=== PATIENT | male | born 1975 | race African-American/Black ===

== ENCOUNTER 2017-04-11 19:08 | Emergency (ER) | payer MEDICARE, OTHER ==
[~2017-04-11] VITALS: Ht 188 cm; Wt 115.0 kg
[~2017-04-11 19:08] MED LIST: BENZ1TAB PO; HALO100P IM; HALO10TA PO
[2017-04-11 19:09] VITALS: BP 133/92; PULSE 88; RESP 16; TEMP 98.8; O2SAT 97
== END 2017-04-11 20:32 | disposition left against medical advice (07) ==
LOC: NETRI 19:08
DX: Z53.21 Procedure and treatment not carried out due to patient leaving prior to being seen by health care provider (principal)

== ENCOUNTER 2017-04-11 21:52 | Inpatient (IN) | payer MEDICARE, OTHER ==
[~2017-04-11] VITALS: Ht 188 cm; Wt 115.6 kg
[2017-04-11 22:07] VITALS: BP 165/92; PULSE 73; RESP 18; TEMP 98.1; O2SAT 98
[2017-04-11 22:30] LABS: BASOPHIL # 0.1 TH/MM3 (0-0.2); BASOPHIL % 0.7 % (0.0-2.0); EOSINOPHIL % 0.6 % (0.0-4.0); HEMATOCRIT 36.8 % (39.0-51.0); HEMO FLAGS DIFF FINAL; LYMPHOCYTE # 2.1 TH/MM3 (1.0-4.8); MEAN CELL VOLUME 73.2 FL (80.0-100.0); MEAN CORPUSCULAR HEMOGLOBIN 22.8 PG (27.0-34.0); MEAN CORPUSCULAR HGB CONC 31.2 % (32.0-36.0); MONO % 6.7 % (0.0-8.0); PLATELET COUNT 268 TH/MM3 (150-450); RED BLOOD COUNT 5.02 MIL/MM3 (4.50-5.90); WHITE BLOOD COUNT 7.6 TH/MM3 (4.0-11.0)
[2017-04-11 22:41] LABS: AMPHETAMINE, URINE NEG (NEG); BARBITURATES, URINE NEG (NEG); COCAINE, URINE NEG (NEG)
[2017-04-11 22:56] LABS: ALT (GPT) 41 U/L (12-78); ANION GAP 6 MEQ/L (5-15); AST (GOT) 23 U/L (15-37); BICARBONATE 27.1 MEQ/L (21.0-32.0); BLOOD UREA NITROGEN 12 MG/DL (7-18); CHLORIDE 110 MEQ/L (98-107); GLOMERULAR FILTRATION RATE 111 ML/MIN (>89); SODIUM (NA) 143 MEQ/L (136-145)
[2017-04-11 22:59] LABS: ALKALINE PHOSPHATASE 90 U/L (45-117); TOTAL BILIRUBIN ADULT 0.4 MG/DL (0.2-1.0)
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
[2017-04-11 23:00] LABS: ACETAMINOPHEN LESS THAN 2.0 MCG/ML (10.0-30.0)
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
[2017-04-12 01:32] VITALS: BP 128/79; PULSE 64; RESP 18; O2SAT 100
[2017-04-12 06:09] VITALS: BP 126/70; PULSE 53; RESP 16; O2SAT 100
[2017-04-12 07:17] VITALS: BP 129/77; PULSE 57; RESP 16; TEMP 98.1; O2SAT 98
[2017-04-12 10:16] VITALS: BP 164/84; PULSE 68; RESP 18; TEMP 97.8; O2SAT 100
[2017-04-12] MEDS ORDERED: BENZTROPINE MESYLATE 1 MG TAB PO PRN (21:45)
[2017-04-12] MEDS ORDERED: ALUMINUM/MAGNESIUM/SIMETH 30 ML CUP PO PRN (21:45)
[2017-04-12] MEDS ORDERED: diphenhydrAMINE HCL 50 MG CAP - HS PRN PO (21:45)
[2017-04-12] MEDS ORDERED: BENZTROPINE MESYLATE 2 MG/2 ML VIAL IM PRN (21:45)
[2017-04-12] MEDS ORDERED: LORazepam 2 MG/ML VIAL IM PRN (21:45)
[2017-04-12] MEDS ORDERED: MAGNESIUM HYDROXIDE SUSP 30 ML CUP PO PRN (21:45)
[2017-04-12] MEDS ORDERED: LORazepam 1 MG TAB PO PRN (21:45)
[2017-04-12] MEDS ORDERED: diphenhydrAMINE HCL 50 MG/ML VIAL - HS PRN IM (21:45)
[2017-04-12] MEDS: ARIPiprazole 15 MG TAB PO SCH (21:54)
[2017-04-13] MEDS: ACETAMINOPHEN 325 MG TAB PO PRN (05:21)
[2017-04-13 06:05] VITALS: BP 90/50; PULSE 60; RESP 17; TEMP 97.7; O2SAT 97
[2017-04-13] MEDS: NICOTINE 21 MG/24 HR PATCH T-DERMAL SCH (09:00)
[2017-04-13 09:10] LABS: ANION GAP 6 MEQ/L (5-15); BICARBONATE 32.2 MEQ/L (21.0-32.0); BLOOD UREA NITROGEN 8 MG/DL (7-18); CHLORIDE 103 MEQ/L (98-107); GLOMERULAR FILTRATION RATE 113 ML/MIN (>89); HDL CHOLESTEROL 35.7 MG/DL (40.0-60.0); LDL CHOLESTEROL 115 MG/DL (0-99); POTASSIUM 3.7 MEQ/L (3.5-5.1); SODIUM (NA) 141 MEQ/L (136-145)
--- NOTE | 2017-04-13 11:27 | HHI.HP ---
Provisional Diagnosis Admission Date April 12, 2017 at 08:44 [place] I. Schizophrenia, chronic paranoid type. Certification of Person's Competence To Provide Express and Informed Consent I have personally examined Mehul Callahan , a person being served at [facility] on, April 13, 2017 11:26. Express and informed consent means consent voluntarily given in writing, by a competent person, after sufficient explanation and disclosure of the subject matter involved to enable the person to make a knowing and willful decision without any element of force, fraud, deceit, duress, or other form of constraint or coercion. This person is 18 years of age or older, is not now known to be incompetent to consent to treatment with a guardian advocate, and does not have a health care surrogate or proxy currently making medical treatment decisions. I have found this person to be one of the following: [X] Competent to provide express and informed consent, as defined above, for voluntary admission to this facility and is competent to provide express and informed consent for treatment. He/she has the consistent capacity to make well reasoned, willful, and knowing decisions concerning his or her medical or mental health treatment. The person fully and consistently understands the purpose of the admission for examination/placement and is fully capable of personally exercising all rights assured [place] Incompetent to provide express and informed consent to voluntary admission, and this is incompetent to provide express and informed consent to treatment. The person must be transferred to involuntary status and a petition for a guardian advocate filed with the Circuit Court. [] Refusing to provide express and informed consent to voluntary admission but is competent to provide express and informed consent for treatment. The person must be discharged or transferred to involuntary status. Form shall be completed within 24 hours of a person's arrival at the receiving facility and filed in the clinical record of each person: 1. Admitted on a voluntary basis 2. Permitted to provide express and informed consent to his/her own treatment 3. Allowed to transfer from involuntary to voluntary status 4. Prior to permitting a person to consent to his or her own treatment after having been previously found incompetent to consent to treatment. History of Present Illness Capacity: Has Capacity HPI This is a 41-year-old male with a long history of paranoid schizophrenia, admitted due to auditory hallucinations and suicidal ideation. Patient was started on Abilify and tolerates the medicine well. He states that he feels better and would like to go home. This physician asked him to stay over the next 24 hours to be evaluated. Also administered is Abilify maintain a, to help the patient with compliance and consistency. The patient does describe auditory hallucinations, especially yesterday, which were derogatory to him in nature. He is also afraid of being around people and feels that they are generally plotting against him. However at this time he is calm and pleasant and cooperative. Therefore, if he can continue to demonstrate appropriateness, despite his psychosis, if he is not suicidal he may be discharged soon. He currently resides at the [facility] here in the [facility]. He does state that he has a home with his brother in [facility]. Patient denies any recent use of alcohol or drugs. Review of Systems Except as stated in HPI: all other systems reviewed are Neg Past Psych History Psychological trauma history Denied for psychological trauma. Patient has a multiyear history of schizophrenia. Violence risk - others (6 mos) Minimal Violence risk - self (6 mos) Moderate Substance Abuse History Drugs/Alcohol past 12 months Denied Past Family Social History Coded Allergies: Depakote (Verified Allergy, Severe, 04/11/17) Per pt. Shellfish (Verified Allergy, Severe, 04/11/17) Per pt. Active Scripts Haloperidol 10 Mg Tab10 Mg PO TID 15 Days Ref 1 Prov:Marino Gama MD 11/12/16 Discontinued Scripts Benztropine 1 Mg Tab1 Mg PO Q12HR 15 Days Ref 1 Prov:Marino Gama MD 11/12/16 Haloperidol Decanoate Inj (Haldol Decanoate Inj)100 Mg/Ml [id number] Mg IM Q28D #1 VIAL Ref 0 Next dose of Haldol Decanoate due on 12/05/2016. Prov:Marino Gama MD 11/12/16 Current Medications Medications (Trade) Dose Ordered Sig/Aleena Route Start Time Stop Time Status Last Admin (Ativan) 1 mg Q6H PRN PO 04/12/17 21:45 (Ativan Inj) 1 mg Q6H PRN IM 04/12/17 21:45 (Cogentin) 1 mg Q12H PRN PO 04/12/17 21:45 (Cogentin Inj) 1 mg Q12H PRN IM 04/12/17 21:45 (Benadryl) 50 mg HS PRN PO 04/12/17 21:45 (Benadryl Inj) 50 mg HS PRN IM 04/12/17 21:45 (Tylenol) 650 mg Q4H PRN PO 04/12/17 21:45 04/13/17 05:21 (Milk Of Magnesia Liq) 30 ml DAILY PRN PO 04/12/17 21:45 (Mag-Al Plus Susp Liq) 30 ml Q6H PRN PO 04/12/17 21:45 (Habitrol 21 Mg Patch.24 Hr) 1 patch DAILY T-DERMAL 04/13/17 09:00 Miscellaneous Information 1 HS T-DERMAL 04/13/17 21:00 (Abilify) 15 mg HS PO 04/12/17 22:00 04/12/17 21:54 Family History Positive for psychotic disorders. Social History Not employed and receives social security disability and Medicare. Not and has no children. No alcohol or drug abuse. Patient's Strengths (min. 2) Verbal and has access to healthcare. Physical Exam GENERAL: SKIN: Warm and dry. HEAD: Normocephalic. EYES: No scleral icterus. No injection or drainage. NECK: Supple, trachea midline. No JVD or lymphadenopathy. CARDIOVASCULAR: Regular rate and rhythm without murmurs, gallops, or rubs. RESPIRATORY: Breath sounds equal bilaterally. No accessory muscle use. GASTROINTESTINAL: Abdomen soft, non-tender, nondistended. MUSCULOSKELETAL: No cyanosis, or edema. BACK: Nontender without obvious deformity. No CVA tenderness. Vital Signs Vital Signs Date Time Temp Pulse Resp B/P Pulse Ox O2 Delivery O2 Flow Rate FiO2 04/13/17 06:05 97.7 60 17 90/50 97 04/12/17 07:17 Room Air Mental Status Examination Speech: Unremarkable Orientation: x3 Memory: Unremarkable Thought Process: Organized, Goal Directed Thought Content: Bizarre thinking, Paranoid Hallucination Type: Auditory Attention and Concentration: Easily Distracted Suicidal Ideation: Yes Previous Suicide Attempts: No Homicidal Ideation: No Previous Homicide Attempts: No Insight: Fair Judgment: WNL Affect: Good Mood: Appropriate Motor Activity: Normal gait Assessment & Plan Problem List: (1) Schizophrenia, paranoid type ICD Code: F20.0 Assessment & Plan Estimated LOS: 3 days patient has been started on oral Abilify and appears to tolerate it well. This physician has ordered Abilify maintain a per the patient 's request. Informed consent was given. The patient wants to leave the hospital as soon as possible but understands this physician has to evaluate his behavior over the next 24 hours. If he can tolerate his paranoia and auditory hallucinations without becoming suicidal or homicidal, he may be a candidate for release. However at the time of admission he was at significant risk to harm himself. Eddie Hunt MD April 13, 2017 11:27
[2017-04-13] MEDS ORDERED: ARIPIPRAZOLE IM ONE (17:15)
[2017-04-13 18:00] VITALS: BP 167/94; PULSE 66; RESP 18; TEMP 96.3; O2SAT 100
[2017-04-13] MEDS ORDERED: REMOVE OLD NICOTINE PATCH T-DERMAL SCH (21:00)
[2017-04-13] MEDS: ARIPiprazole 15 MG TAB PO SCH (21:04)
[2017-04-14 05:31] VITALS: BP 162/81; PULSE 78; RESP 16; TEMP 97.3; O2SAT 98
[2017-04-14] MEDS: NICOTINE 21 MG/24 HR PATCH T-DERMAL SCH (09:00)
[2017-04-14] MEDS: ACETAMINOPHEN 325 MG TAB PO PRN (10:37)
[2017-04-14 12:50] LABS: HEMOGLOBIN A1a 1.4 %; HEMOGLOBIN A1b 0.7 %; HEMOGLOBIN Ao 87.9 %; HEMOGLOBIN F 0.8 %; HEMOGLOBIN P3 2.7 %
--- NOTE | 2017-04-30 11:37 | HHI.PYPN ---
Subjective Remarks This is the psychiatric progress note for April 14, 2017. Patient is doing adequately well. Although he continues to experience auditory hallucinations. His behavior has been completely appropriate. He has been compliant with his medications and compliant with all staff requests. He describes no suicidal or homicidal ideation, plan or intent. Review of Systems Except as stated in HPI: all other systems reviewed are Neg Objective Alert: Yes Marshes Siding: Person, Place, Date, Situation Mood: Calm Affect: Euthymic Memory Intact: Immediate, Recent, Remote Hallucinations: Auditory Delusions: No Delusion Type: Other Suicidal: Ideation (no) Homicidal: Ideation (no) Insight/Judgment Adequate Assessment & Plan Problem List: (1) Schizophrenia, paranoid type ICD Code: F20.0 Assessment & Plan Estimated LOS: days patient does not need to continue treatment as an inpatient. Medications however will be continued. Justification for Cont. Inpt. Being discharged. Eddie Hunt MD Apr 30, 2017 11:37
== END 2017-04-14 11:45 | disposition home or self-care (01) | DRG 885 ==
LOC: NEPD 21:52 → NEDA 04-12 08:44 → H260 04-12 09:30
PROVIDERS: ADMIT Psychiatry & Neurology Psychiatry; ATTEND Psychiatry & Neurology Psychiatry
DX: F20.0 Paranoid schizophrenia (principal); I10 Essential (primary) hypertension; G47.00 Insomnia, unspecified; Z81.8 Family history of other mental and behavioral disorders
CPT/HCPCS: 73060; 80048; 80053; 80061; 80307; 83036; 85025; 99285; Q0163

== ENCOUNTER 2017-04-23 22:03 | Emergency (ER) | payer MEDICARE, OTHER ==
[~2017-04-23 22:03] MED LIST changes: -BENZ1TAB PO; -HALO100P IM
[2017-04-23 22:16] VITALS: BP 157/89; PULSE 60; RESP 16; TEMP 98.4; O2SAT 97
--- NOTE | 2017-04-23 22:20 | PD ---
HPI Chief Complaint: medication refill Time Seen by Provider: 22:19 Travel History International Travel<30 days: No Contact w/Intl Traveler<30days: No History of Present Illness HPI 41-year-old male with a history of schizophrenia is brought to the emergency department by EMS for medication refill. The patient states that he was discharged from our hospital about one week ago with prescriptions for Cogentin and Haldol. States that he has been unable to get these filled due to financial difficulties. He is here requesting that he be given these medications. He does admit to auditory hallucinations but states this is a constant ongoing issue. He denies any suicidal or homicidal ideations. He denies alcohol or drug use. He denies any physical complaints. He denies any chest pain, shortness breath, abdominal pain, nausea, vomiting, diarrhea. He is very frustrated with his current homeless situation. PFSH Past Medical History Anemia: Yes Arthritis: No Asthma: No Autoimmune Disease: No Blood Disorders: No Bipolar Disorder: Yes Anxiety: Yes Depression: Yes Heart Rhythm Problems: No Cancer: No Cardiovascular Problems: No High Cholesterol: No Chemotherapy: No Chest Pain: No Congestive Heart Failure: No COPD: No Cerebrovascular Accident: No Diabetes: No Diminished Hearing: No Endocrine: No Gastrointestinal Disorders: No GERD: No Genitourinary: No Headaches: No Hiatal Hernia: No Hypertension: Yes Immune Disorder: No Implanted Vascular Access Dvce: No Insomnia: Yes Kidney Stones: No Musculoskeletal: Yes Neurologic: No Psychiatric: Yes Reproductive: No Respiratory: No Integumentary: Yes (FUNGAL INFECTION TOES) Immunizations Current: No Migraines: No Myocardial Infarction: No Radiation Therapy: No Renal Failure: No Schizophrenia: Yes Seizures: No Sickle Cell Disease: No Sleep Apnea: No Thyroid Disease: No Ulcer: No PNEUMOCCOCAL Vaccine (Year): 2 Past Surgical History Abdominal Surgery: Yes (LACERATED LIVER 2005) AICD: No Appendectomy: No Arteriovenous Shunt: No Cardiac Surgery: No Cholecystectomy: No Ear Surgery: No Eye Surgery: No Genitourinary Surgery: No Gynecologic Surgery: No Insulin Pump: No Joint Replacement: No Neurologic Surgery: No Oral Surgery: No Pacemaker: No Thoracic Surgery: No Other Surgery: Yes Social History Alcohol Use: Yes (OCCAS) Tobacco Use: No Substance Use: No Allergies-Medications (Allergen,Severity, Reaction): Coded Allergies: Depakote (Verified Allergy, Severe, 04/11/17) Per pt. Shellfish (Verified Allergy, Severe, 04/11/17) Per pt. Reported Meds & Prescriptions Reported Meds & Active Scripts Active Haloperidol 10 Mg Tab 10 Mg PO TID 15 Days Review of Systems Except as stated in HPI: all other systems reviewed are Neg Physical Exam Narrative `GENERAL: Well-nourished and well-developed male patient in no acute distress who is nontoxic appearing. SKIN: Warm and dry. HEAD: Normocephalic and atraumatic. EYES: No injection, drainage, or hyphema noted. PERRLA. EOMI. ENT: No nasal drainage noted. Oropharynx is clear. NECK: Supple and the trachea is midline. CARDIOVASCULAR: Regular rate and rhythm. RESPIRATORY: Breath sounds are equal bilaterally with no accessory muscle use, wheezing, rhonchi, or crackles. GASTROINTESTINAL: Abdomen is soft, non-tender, and nondistended. MUSCULOSKELETAL: No obvious deformities, swelling, cyanosis, or ecchymosis is present throughout the upper and lower extremities. Patient has full range of motion without any signs of neurovascular compromise. NEUROLOGICAL: Awake, alert, and oriented. Normal speech and gait. Cranial nerves are grossly intact. Data Data Last Documented VS Vital Signs Date Time Temp Pulse Resp B/P Pulse Ox O2 Delivery O2 Flow Rate FiO2 04/23/17 22:16 98.4 60 16 157/89 97 MDM Medical Decision Making Medical Screen Exam Complete: Yes Emergency Medical Condition: Yes Differential Diagnosis Homelessness versus financial difficulties versus medication noncompliance versus schizoaffective disorder Narrative Course 41-year-old male with history of schizophrenia is brought to the emergency department requesting medications to be filled. Patient is afebrile, vital signs are stable. Physical examination is unremarkable for any acute abnormalities. Patient is not suicidal or homicidal. No acute psychosis. He has financial difficulties and states he is unable to afford his Haldol or Cogentin. I explained to the patient that unfortunately we cannot fill his medications and that he will have to attempt outpatient follow-up for further resources. Patient is given outpatient resources in discharge paperwork. I discussed the case with my attending physician Dr. Dowd who is aware of the patients history, physical examination findings, and treatment plan. Diagnosis Primary Impression: Homelessness Additional Impression: Schizoaffective disorder Qualified Code: F25.0 - Schizoaffective disorder, bipolar type Referrals: [facility] Additional Instructions: Follow-up with your Primary Care Physician. Return to the ED for any acute worsening of symptoms. Med/Other Pt SpecificInfo: No Change to Meds Disposition: 01 DISCHARGE HOME Condition: Stable Pamela Hauser Apr 23, 2017 22:20
[2017-04-23] MEDS ORDERED: COGE1INJ IM (22:30)
[2017-04-24] MEDS ORDERED: HALO10TA PO (02:28)
[2017-04-24] MEDS ORDERED: ARIP1TAB5 PO (02:28)
== END 2017-04-23 22:58 | disposition home or self-care (01) ==
LOC: NEPC 22:03
DX: F25.9 Schizoaffective disorder, unspecified (principal); Z59.0 Homelessness; I10 Essential (primary) hypertension
CPT/HCPCS: 99283

== ENCOUNTER 2017-04-24 01:56 | Emergency (ER) | payer MEDICARE, OTHER ==
[~2017-04-24] VITALS: Ht 182.9 cm; Wt 120.0 kg
[~2017-04-24 01:56] MED LIST changes: +COGE1INJ IM
[2017-04-24 01:58] VITALS: BP 157/93; PULSE 77; RESP 16; TEMP 98.5; O2SAT 98
[2017-04-24] MEDS ORDERED: ARIP1TAB5 PO (02:28)
[2017-04-24] MEDS ORDERED: HALO10TA PO (02:28)
--- NOTE | 2017-04-24 03:00 | PD ---
HPI Chief Complaint: Medical Clearance Time Seen by Provider: 02:56 Travel History International Travel<30 days: No Contact w/Intl Traveler<30days: No Traveled to known affect area: No History of Present Illness HPI 41-year-old black male presents to emergency Department with complaints of blisters and pain to his feet. He states that he had walked from [place] to [facility]. He is homeless. He also states that he's been having chronic pain in his penis for over 6 months. He denies any discharge. No rashes or lesions. He denies sexual activity. PFSH Past Medical History Anemia: Yes Arthritis: No Asthma: No Autoimmune Disease: No Blood Disorders: No Bipolar Disorder: Yes Anxiety: Yes Depression: Yes Heart Rhythm Problems: No Cancer: No Cardiovascular Problems: No High Cholesterol: No Chemotherapy: No Chest Pain: No Congestive Heart Failure: No COPD: No Cerebrovascular Accident: No Diabetes: No Diminished Hearing: No Endocrine: No Gastrointestinal Disorders: No GERD: No Genitourinary: No Headaches: No Hiatal Hernia: No Heparin Induced Thrombocytopen: No Hypertension: Yes Immune Disorder: No Implanted Vascular Access Dvce: No Insomnia: Yes Kidney Stones: No Musculoskeletal: Yes Neurologic: No Psychiatric: Yes Reproductive: No Respiratory: No Integumentary: Yes (FUNGAL INFECTION TOES) Immunizations Current: No Migraines: No Myocardial Infarction: No Radiation Therapy: No Renal Failure: No Schizophrenia: Yes Seizures: No Sickle Cell Disease: No Sleep Apnea: No Thyroid Disease: No Ulcer: No PNEUMOCCOCAL Vaccine (Year): 2 Past Surgical History Abdominal Surgery: Yes (LACERATED LIVER 2005) AICD: No Appendectomy: No Arteriovenous Shunt: No Cardiac Surgery: No Cholecystectomy: No Ear Surgery: No Eye Surgery: No Genitourinary Surgery: No Gynecologic Surgery: No Insulin Pump: No Joint Replacement: No Neurologic Surgery: No Oral Surgery: No Pacemaker: No Thoracic Surgery: No Other Surgery: Yes Social History Alcohol Use: Yes (OCCAS) Tobacco Use: No Substance Use: No Allergies-Medications (Allergen,Severity, Reaction): Coded Allergies: Depakote (Verified Allergy, Severe, 04/24/17) Per pt. Shellfish (Verified Allergy, Severe, 04/24/17) Per pt. Reported Meds & Prescriptions Reported Meds & Active Scripts Active Reported Haloperidol 10 Mg Tab 10 Mg PO BID Abilify (Aripiprazole) 10 Mg Tab 10 Mg PO DAILY Cogentin Inj (Benztropine Mesylate) 1 Mg/Ml Inj 2 Mg IM HS 30 Days Review of Systems Except as stated in HPI: all other systems reviewed are Neg Physical Exam Narrative GENERAL: Well-developed, well-nourished in no acute distress. Nontoxic appearing. HEAD: Normocephalic, atraumatic. EYES: Pupils equal round and reactive. Extraocular motions intact. No scleral icterus. No injection or drainage. ENT: TMs clear without erythema. The external auditory canals clear. Nose: clear . Posterior pharynx is pink and moist. No tonsillar edema or exudate. Uvula midline. Airway patent. NECK: Trachea midline.Supple, nontender, moves head freely. No central bony tenderness or spasm. CARDIOVASCULAR: Regular rate and rhythm without murmurs, gallops, or rubs. RESPIRATORY: Clear to auscultation. Breath sounds equal bilaterally. No wheezes , rales, or rhonchi. GASTROINTESTINAL: Abdomen soft, non-tender, nondistended. No hepato-splenomegaly , or palpable masses. No guarding. EXTREMITIES: No clubbing, cyanosis, or edema. No joint tenderness, effusion, or edema noted. Patient has superficial friction blisters on the soles of his feet. No signs of infection. Patient has some mild scaling between the toes. BACK: Nontender without deformity or crepitance. No flank tenderness. GENITOURINARY: Circumcised. Testes descended bilaterally without evidence of rotation. No lesions or erythema. No urethral discharge. Data Data Last Documented VS Vital Signs Date Time Temp Pulse Resp B/P Pulse Ox O2 Delivery O2 Flow Rate FiO2 04/24/17 01:58 98.5 77 16 157/93 98 [facility] Medical Decision Making Medical Screen Exam Complete: Yes Emergency Medical Condition: Yes Medical Record Reviewed: Yes Differential Diagnosis Differential diagnosis: Foot pain, sprain, strain, tinea pedis, friction blisters Narrative Course Patient's feet are cleansed. Patient is given lotion for his feet and new socks. Patient's genital exam is unremarkable. No need for testing at this time. This is friction blisters, schizophrenia Diagnosis Primary Impression: Friction blisters of the soles Qualified Code: S90.829A - Friction blisters of the soles, unspecified laterality, initial encounter Additional Impression: Schizophrenia Qualified Code: F20.9 - Schizophrenia, unspecified type Patient Instructions: General Instructions Additional Instructions: Rest. Daily wound care with soap, water, Neosporin. Medication as directed. Follow-up with the [facility] Follow-up with [facility]. Med/Other Pt SpecificInfo: Wound Care Disposition: 01 DISCHARGE HOME Condition: Stable Maurisio Chen Apr 24, 2017 03:00
== END 2017-04-24 03:58 | disposition home or self-care (01) ==
LOC: NEPD 01:56
DX: S90.829A Blister (nonthermal), unspecified foot, initial encounter (principal); F20.9 Schizophrenia, unspecified; M79.671 Pain in right foot; M79.672 Pain in left foot; N48.89 Other specified disorders of penis; D64.9 Anemia, unspecified; I10 Essential (primary) hypertension; Z59.0 Homelessness
CPT/HCPCS: 99282